=== PATIENT | female | born 1970 | race Caucasian/White ===

== ENCOUNTER 2016-12-02 12:05 | Emergency (ER) | payer SELFPAY ==
[~2016-12-02] VITALS: Ht 160 cm; Wt 76.0 kg
[~2016-12-02 12:05] MED LIST: AMOX-429 PO; DSS100 PO; FERR-89 PO; IBUP-2070 PO; PERCT PO; ZOLP5 PO
[2016-12-02 15:00] VITALS: BP 121/80
[2016-12-02] MEDS ORDERED: OxyCODONE HCL/ACETAMINOPHEN 5-325 MG TABLET PO ONE (15:30)
== END 2016-12-02 15:44 | disposition home or self-care (01) ==
LOC: EMS 12:14
DX: M79.661 Pain in right lower leg (principal); F17.210 Nicotine dependence, cigarettes, uncomplicated; Z71.6 Tobacco abuse counseling
CPT/HCPCS: 93971; 99284; 99406

== ENCOUNTER 2017-06-19 19:30 | Emergency (ER) | payer OTHER ==
[~2017-06-19] VITALS: Ht 160 cm; Wt 84.1 kg
[~2017-06-19 19:30] MED LIST changes: -AMOX-429 PO
[2017-06-19] MEDS ORDERED: ACETAMINOPHEN 325 MG TABLET PO ONE (20:30)
[2017-06-19] MEDS ORDERED: PROPARACAINE HCL 0.5% 15 ML OPHTHALMIC SOLUTION OS ONE (20:30)
[2017-06-19] MEDS ORDERED: FLUORESCEIN SODIUM 1 MG STRIP OS ONE (20:45)
[2017-06-19 20:55] VITALS: BP 128/75
[2017-06-19] MEDS ORDERED: ERYTHROMYCIN 0.5% 3.5 GM TUBE OPHTHALMIC OINTMENT OS ONE (21:00)
[2017-06-19] MEDS ORDERED: ERYTHROMYCIN 0.5% 1 GM TUBE OPHTHALMIC OINTMENT OS ONE (21:00)
== END 2017-06-19 21:04 | disposition home or self-care (01) ==
LOC: EMS 19:38
DX: H57.12 Ocular pain, left eye (principal); F17.210 Nicotine dependence, cigarettes, uncomplicated
CPT/HCPCS: 99284